=== PATIENT | female | born 1970 | race American Indian/Alaskan Native ===

== ENCOUNTER 2017-11-05 08:32 | Emergency (ER) | payer BC, OTHER ==
[2017-11-05] MEDS ORDERED: MOTRIN PO ONE (09:46)
[2017-11-05] MEDS ORDERED: DELTASONE PO ONE (09:46)
--- NOTE | 2017-11-05 09:46 | Emergency Department Report ---
Minor Respiratory - HPI Chief Complaint: Sore Throat Stated Complaint: SORE THROAT Time Seen by Provider: 11/05/17 09:03 Duration: 1 week Pain Location: Throat (8/10 and burning.) Severity: severe Minor Respiratory: Yes Rhinorrhea (congestion), Yes Sore Throat (burning /worse with swallowing), Yes Able to Tolerate Fluids, Yes Cough (dry cough and postnasal drainage), No Ear Pain, No Sick Contacts, No Hemoptysis, No Chest Pain , No Shortness of Breath, No Fever Other History: Patient reports sore throat that's been ongoing for about a week. She says she's been taking the throat lozenges and spray but it's not helping. Pain is 8 out of 10 burning worse with swallowing. She has postnasal drip, nasal congestion. She says she feels clogged in her facial area. Denies any headache. Denies any nausea or vomiting. Reports cough without any shortness of breath or chest pain. Denies any abdominal pain. Denies any urinary symptoms. Denies any dizziness or blurred vision. ED Review of Systems ROS: Stated complaint: SORE THROAT Other details as noted in HPI Comment: All other systems reviewed and negative Constitutional: denies: chills, fever Eyes: denies: eye pain, eye discharge, vision change ENT: throat pain, congestion. denies: ear pain, dental pain, hearing loss, epistaxis Respiratory: cough. denies: orthopnea, shortness of breath, SOB with exertion, SOB at rest, stridor, wheezing Cardiovascular: denies: chest pain, palpitations, edema, syncope Gastrointestinal: denies: abdominal pain, nausea, vomiting Musculoskeletal: denies: back pain, arthralgia, myalgia Skin: denies: rash Neurological: denies: headache, vertigo ED Past Medical Hx - Past Medical History Previous Medical History?: Yes Hx Hypertension: Yes (since 2010) Hx Heart Attack/AMI: Yes (2010) Hx Congestive Heart Failure: Yes Hx GERD: Yes Hx Headaches / Migraines: Yes (MIGRAINES) Additional medical history: sinusitis - Surgical History Past Surgical History?: No - Family History Family history: hypertension - Social History Smoking Status: Never Smoker Substance Use Type: Alcohol, Non Opiate Pain - Medications Home Medications: Home Medications Medication Instructions Recorded Confirmed Last Taken Type Clopidogrel Bisulfate [Plavix] 75 mg PO DAILY 10/27/14 11/15/14 11/10/14 History Metoprolol [Lopressor TAB] 25 mg PO DAILY 10/27/14 11/18/14 11/17/14 History Simvastatin 40 mg PO DAILY 10/27/14 11/18/14 11/17/14 History Aspirin EC [Aspirin Enteric Coated 81 mg PO QDAY 11/15/14 11/15/14 11/10/14 History TAB] Amoxicillin/K Clav Tab [Augmentin 1 tab PO Q12HR 7 Days #14 tab 11/05/17 Unknown Rx 875 mg] Cetirizine HCl [ZyrTEC] 10 mg PO QAM 14 Days #14 capsule 11/05/17 Unknown Rx Fluticasone [Flonase] 1 spray NS QDAY 14 Days #1 bottle 11/05/17 Unknown Rx Ibuprofen [Motrin] 600 mg PO Q8H PRN #12 tablet 11/05/17 Unknown Rx Minor Respiratory Exam - Exam General: Vital signs noted. No distress. Alert and acting appropriately. This is a 47-year-old female well-nourished well-developed in no acute distress HEENT: Yes Moist Mucous Membranes (uvula is midline and oral airways patent.), Yes Rhinorrhea (erythema and congested), No Pharyngeal Erythema (exudates or peritonsillar abscess noted), No Pharyngeal Exudates, No Conjuctival Injection, No Frontal Tenderness, No Maxillary Tenderness Ear: Neither TM Bulge (Bilateral TM congested), Neither TM Erythema, Neither EAC Pain, Neither EAC Discharge Neck: Yes Supple (full range of motion), No Adenopathy Lungs: Yes Good Air Exchange, No Wheezes, No Ronchi, No Stridor, No Cough, No Labored Respirations, No Retractions, No Use of Accessory Muscles, No Other Abnormal Lung Sounds Heart: Yes Regular (S1-S2), No Murmur Abdomen: Yes Normal Bowel Sounds, No Tenderness (nontender the palpation in all quadrants), No Peritoneal Signs Skin: No Rash, No Edema Neurologic: Alert and oriented 3. Speech is clear and fluid. No deficits. Musculoskeletal: Unremarkable. Extremity:No clubbing, Cyanosis or edema. Positive pulses to all extremities ED Course Vital Signs 11/05/17 08:51 Temperature 98.8 F Pulse Rate 79 Respiratory 18 Rate Blood Pressure 122/81 O2 Sat by Pulse 99 Oximetry - Reevaluation(s) Reevaluation #1: 11/05/17 10:23 I think given Deltasone 60 mg by mouth in emergency room and Motrin 800 mg by mouth ED Medical Decision Making - Medical Decision Making ED course: Reports sore throat 1 week and also reports nasal congestion and runny nose. Reports occasional coughing. Patient found to have sinusitis, upper respiratory tract infection with cough and congestion and pharyngitis. I discussed diagnosis and treatment plan and she voiced understanding. Patient and given Deltasone 60 mg by mouth and Motrin 800 mg by mouth in emergency room which helped her pain. She is able to tolerate oral liquids without any problem. Patient discharged home with her family member in stable condition with prescription for Zyrtec, Augmentin to take with yogurt or probiotic, Flonase and instructed to use saline nasal spray to flush nostrils out and follow up with her primary care physician which she does have one in 2-3 days. Critical care attestation.: If time is entered above; I have spent that time in minutes in the direct care of this critically ill patient, excluding procedure time. ED Disposition Clinical Impression: Upper respiratory infection, acute Sinusitis Qualifiers: Sinusitis location: unspecified location Chronicity: acute Recurrence: not specified as recurrent Qualified Code(s): J01.90 - Acute sinusitis, unspecified Pharyngitis Qualifiers: Pharyngitis/tonsillitis etiology: unspecified etiology Qualified Code(s): J02.9 - Acute pharyngitis, unspecified Disposition: DC-01 TO HOME OR SELFCARE Is pt being admited?: No Does the pt Need Aspirin: No Condition: Stable Instructions: Sinusitis (ED), Acute Cough (ED), Pharyngitis (ED) Additional Instructions: Please increase her fluid intake Flush nostrils with saline nasal spray take antibiotic and other medication as prescribed. As prescribed. He state antibiotic with food or yogurt. F/U with primary care physician as instructed Prescriptions: Amoxicillin/K Clav Tab [Augmentin 875 mg] 1 tab PO Q12HR 7 Days #14 tab Cetirizine HCl [ZyrTEC] 10 mg PO QAM 14 Days #14 capsule Fluticasone [Flonase] 1 spray NS QDAY 14 Days #1 bottle Ibuprofen [Motrin] 600 mg PO Q8H PRN #12 tablet PRN Reason: Pain Referrals: PRIMARY CARE, [Primary Care Provider] - 2-3 Days Forms: Accompanied Note, Work/School Release Form(ED)
[2017-11-05 10:47] VITALS: BP 122/79
== END 2017-11-05 10:45 | disposition home or self-care (01) ==
LOC: ED 08:32
DX: J02.9 Acute pharyngitis, unspecified (principal); J01.90 Acute sinusitis, unspecified; I11.0 Hypertensive heart disease with heart failure; I50.9 Heart failure, unspecified; I25.2 Old myocardial infarction; K21.9 Gastro-esophageal reflux disease without esophagitis; G43.909 Migraine, unspecified, not intractable, without status migrainosus
CPT/HCPCS: 99282; J7512

== ENCOUNTER 2020-10-03 08:17 | Outpatient (CLI) | payer OTHER ==
--- NOTE | 2020-10-03 09:22 | Mammography Report ---
DIGITAL SCREENING MAMMOGRAM WITH CAD, 10/03/2020 CLINICAL INFORMATION / INDICATION: Routine screening mammography. TECHNIQUE: Digital bilateral 2D mammography was obtained in the craniocaudal and mediolateral obliqu e projections. This examination was interpreted with the benefit of Computer-Aided Detection analysis . COMPARISON: 07/09/2018 FINDINGS: Breast Density: The breasts are almost entirely fatty. No dominant mass, suspicious calcifications, or architectural distortion in either breast. No interval change. IMPRESSION: No mammographic evidence of malignancy. Follow up recommendation: Routine yearly BI-RADS Category 1: Negative. A "normal" or negative report should not discourage follow up or biopsy of a clinically significant f inding. A written summary of these findings will be mailed to the patient. The patient will be entered into a mammography reporting system which will generate a reminder letter for the patient's next appointmen t at the appropriate interval. The [employer] recommends yearly mammograms starting at age 40 and continuing as l roger as a woman is in good health. Breast MRI is recommended for women with an approximate 20-25% or greater lifetime risk of breast cancer, including women with a strong family history of breast or ova layne cancer or who have been treated for Hodgkin's disease. Signer Name: Katie Fuller MD Signed: 10/03/2020 9:18 AM Workstation Name: [facility]
== END 2020-10-03 08:18 | disposition home or self-care (01) ==
LOC: SPVWC 08:17
PROVIDERS: ATTEND Internal Medicine
DX: Z12.31 Encounter for screening mammogram for malignant neoplasm of breast (principal)
CPT/HCPCS: 77067

== ENCOUNTER 2021-09-26 18:29 | Emergency (ER) | payer SELFPAY ==
[2021-09-26] MEDS ORDERED: FAMOTIDINE 20 MG/2 ML INJ IV ONE (18:53)
[2021-09-26] MEDS ORDERED: methylPREDNISolone Sod Succinate 125 MG/2 ML INJ IV ONE (18:54)
[2021-09-26] MEDS ORDERED: diphenhydrAMINE 50 MG/ML VIAL IV ONE (18:54)
--- NOTE | 2021-09-26 20:24 | Emergency Department Report ---
HPI - General Chief Complaint: Allergic Reaction PUI?: No Time Seen by Provider: 09/26/21 18:52 - HPI HPI: 50-year-old black female with a past medical history of diabetes and hypertension presents to the emergency room for evaluation of allergic reaction. She states that yesterday she started to have a rash to her face, forearms, and abdomen along with itching in her throat. She states that later that day she started to notice some swelling to her right lower lip. She states that she took some Benadryl which improved the itching but today she started to have increased itching and increased rash and felt what she describes as "funniness" to her chest along with increased itching to her throat. Of note, patient does take lisinopril for hypertension. ED Past Medical Hx - Past Medical History Previous Medical History?: Yes Hx Hypertension: Yes (since 2010) Hx Heart Attack/AMI: Yes (2010) Hx Congestive Heart Failure: Yes Hx GERD: Yes Hx Arthritis: Yes Hx Headaches / Migraines: Yes (MIGRAINES) Additional medical history: sinusitis - Surgical History Past Surgical History?: No - Social History Smoking Status: Never Smoker - Medications Home Medications: Home Medications Medication Instructions Recorded Confirmed Last Taken Type Clopidogrel Bisulfate [Plavix] 75 mg PO DAILY 10/27/14 03/16/20 03/16/20 History Metoprolol [Lopressor TAB] 25 mg PO DAILY 10/27/14 03/16/20 03/16/20 History Aspirin EC [Halfprin EC] 81 mg PO QDAY 11/15/14 03/16/20 03/16/20 History Atorvastatin [Lipitor Tab] 80 mg PO QHS 03/16/20 03/16/20 03/15/20 History Losartan [Cozaar] 25 mg PO DAILY 03/16/20 03/16/20 03/16/20 History EPINEPHrine [Epipen] 0.3 mg IJ ONCE PRN #1 pen 09/26/21 Unknown Rx Famotidine [Pepcid] 20 mg PO BID #10 tablet 09/26/21 Unknown Rx Prednisone [predniSONE 10 mg 10 mg PO .TAPER #1 tab 09/26/21 Unknown Rx (6-Day Pack, 21 Tabs)] ED Review of Systems ROS: Stated complaint: ALLERGIC REACTION Other details as noted in HPI Comment: All other systems reviewed and negative Constitutional: no symptoms reported Eyes: denies: eye pain, eye discharge, vision change ENT: denies: ear pain, throat pain, congestion Respiratory: shortness of breath. denies: SOB with exertion, wheezing Cardiovascular: chest pain. denies: palpitations, dyspnea on exertion, edema, syncope Endocrine: no symptoms reported Gastrointestinal: denies: abdominal pain, nausea, vomiting Musculoskeletal: denies: back pain Skin: rash Neurological: denies: headache, weakness, numbness Psychiatric: denies: anxiety Physical Exam - Physical Exam Vital Signs: Vital Signs 09/26/21 18:35 Temperature 98.4 F Pulse Rate 72 Respiratory 16 Rate Blood Pressure 156/87 [Left] O2 Sat by Pulse 100 Oximetry ED Course Vital Signs 09/26/21 18:35 Temperature 98.4 F Pulse Rate 72 Respiratory 16 Rate Blood Pressure 156/87 [Left] O2 Sat by Pulse 100 Oximetry - Reevaluation(s) Reevaluation #1: Welts, itching, "funny" feeling in chest, and scratchy throat have resolved. Patient states that she feels much better. 09/26/21 20:16 ED Medical Decision Making - Medical Decision Making 50-year-old black female with a past medical history of diabetes and hypertension presents to the emergency room for evaluation of allergic reaction. She states that yesterday she started to have a rash to her face, forearms, and abdomen along with itching in her throat. She states that later that day she started to notice some swelling to her right lower lip. She states that she took some Benadryl which improved the itching but today she started to have increased itching and increased rash and felt what she describes as "funniness" to her chest along with increased itching to her throat. Of note, patient does take lisinopril for hypertension. Welts mostly resolved, feeling in chest resolved, and scratchiness in throat has resolved. Patient states that she feels much better. Plan to send patient home with 6-day prednisone pack along with 5 days of Pepcid 20 mg p.o. and encouragement to follow-up with her primary care doctor or an clinician oncology if any worsening of symptoms or if no further improvement. She was also given EpiPen to use in the evening of another reaction. She verbalized understanding and agreement with plan of care. Critical Care Time: No Critical care attestation.: If time is entered above; I have spent that time in minutes in the direct care of this critically ill patient, excluding procedure time. ED Disposition Clinical Impression: Allergic reaction Disposition: 01 HOME / SELF CARE / HOMELESS Is pt being admited?: No Does the pt Need Aspirin: No Condition: Stable Instructions: Allergies, Adult, [id number], How to Use an Auto-Injector Pen Additional Instructions: Take medications as prescribed. Follow up with primary care provider. Prescriptions: EPINEPHrine [Epipen] 0.3 mg IJ ONCE PRN #1 pen PRN Reason: Allergic Reaction Famotidine [Pepcid] 20 mg PO BID #10 tablet Prednisone [predniSONE 10 mg (6-Day Pack, 21 Tabs)] 10 mg PO .TAPER #1 tab Referrals: ABDI CUBA MD [Referring] - 3-5 Days Time of Disposition: 20:24 ED Allergic Reaction HPI - General Chief complaint: Allergic Reaction Stated complaint: ALLERGIC REACTION Time Seen by Provider: 09/26/21 18:52 Source: patient Mode of arrival: Ambulatory Limitations: No Limitations - History of Present Illness Complaint: allergic reaction -: Sudden, days(s) (2) Exposure: unknown Symptoms: rash, itching, lip swelling, difficulty swallowing. denies: difficulty breathing, hoarseness, dizziness, nausea, vomiting, abdominal pain Treatment Prior to Arrival: yesi Previous Allergy History: none - Related Data Home Medications Medication Instructions Recorded Confirmed Last Taken Clopidogrel Bisulfate [Plavix] 75 mg PO DAILY 10/27/14 03/16/20 03/16/20 Metoprolol [Lopressor TAB] 25 mg PO DAILY 10/27/14 03/16/20 03/16/20 Aspirin EC [Halfprin EC] 81 mg PO QDAY 11/15/14 03/16/20 03/16/20 Atorvastatin [Lipitor Tab] 80 mg PO QHS 03/16/20 03/16/20 03/15/20 Losartan [Cozaar] 25 mg PO DAILY 03/16/20 03/16/20 03/16/20 Previous Rx's Medication Instructions Recorded Last Taken Type EPINEPHrine [Epipen] 0.3 mg IJ ONCE PRN #1 pen 09/26/21 Unknown Rx Famotidine [Pepcid] 20 mg PO BID #10 tablet 09/26/21 Unknown Rx Prednisone [predniSONE 10 mg 10 mg PO .TAPER #1 tab 09/26/21 Unknown Rx (6-Day Pack, 21 Tabs)] Allergies Allergy/AdvReac Type Severity Reaction Status Date / Time No Known Allergies Allergy Verified 03/16/20 11:28 ED ALLG RXN EXAM - General General appearance: in no apparent distress Limitations: No Limitations Head exam: Positive: atraumatic, normocephalic Eye exam: normal appearance ENT Exam: Positive: Lip Edema. Negative: Drooling, Muffled Voice, Tongue Edema, Uvular Edema Neck exam: Positive: normal inspection, full ROM. Negative: tenderness Respiratory exam: Positive: normal lung sounds bilaterally. Negative: respiratory distress, wheezes, chest wall tenderness, accessory muscle use Cardiovascular Exam: Positive: regular rate GI/Abdominal exam: Positive: soft, normal bowel sounds. Negative: distended, tenderness, guarding, rebound Extremities exam: Positive: normal inspection, full ROM Neurological exam: Positive: oriented X3 Psychiatric exam: Positive: normal affect, normal mood Skin exam: Positive: warm, dry, intact, rash, urticaria
[2021-09-26 22:21] VITALS: BP 132/87
== END 2021-09-26 22:20 | disposition home or self-care (01) ==
LOC: ED 18:29
DX: T78.40XA Allergy, unspecified, initial encounter (principal); X58.XXXA Exposure to other specified factors, initial encounter; I10 Essential (primary) hypertension
CPT/HCPCS: 96374; 96375; 99282; J1200; J2930; J3490

== ENCOUNTER 2022-04-19 15:56 | Emergency (ER) | payer OTHER ==
--- NOTE | 2022-04-19 21:01 | Emergency Department Report ---
ED General Adult HPI - General Chief complaint: Back Pain/Injury Stated complaint: SHORTNESS OF BREATH Time Seen by Provider: 04/19/22 20:29 Source: patient Mode of arrival: Ambulatory Limitations: No Limitations - History of Present Illness Initial comments: This is a 50-year-old black female with a past medical history of diabetes, MD, arthralgia, and hypertension presents to the emergency room for evaluation shortness of breath and right rib and flank pain x2 days. Symptoms are exacerbated by movement and deep inspiration. Symptoms are relieved by nothing tried. Patient denies headache no dizziness no diaphoresis has been no nausea vomiting no fever or chills. Patient denies productive cough. There is no dysuria frequency or urgency. Patient denies other symptoms. Patient advises adherence to all other medications as prescribed. Patient denies suspicious travel or history of PE. Severity scale (0 -10): 6 - Related Data Home Medications Medication Instructions Recorded Confirmed Last Taken Clopidogrel Bisulfate [Plavix] 75 mg PO DAILY 10/27/14 03/16/20 03/16/20 Metoprolol [Lopressor TAB] 25 mg PO DAILY 10/27/14 03/16/20 03/16/20 Aspirin EC [Halfprin EC] 81 mg PO QDAY 11/15/14 03/16/20 03/16/20 Atorvastatin [Lipitor Tab] 80 mg PO QHS 03/16/20 03/16/20 03/15/20 Losartan [Cozaar] 25 mg PO DAILY 03/16/20 03/16/20 03/16/20 Previous Rx's Medication Instructions Recorded Last Taken Type EPINEPHrine [Epipen] 0.3 mg IJ ONCE PRN #1 pen 09/26/21 Unknown Rx Famotidine [Pepcid] 20 mg PO BID #10 tablet 09/26/21 Unknown Rx Prednisone [predniSONE 10 mg 10 mg PO .TAPER #1 tab 09/26/21 Unknown Rx (6-Day Pack, 21 Tabs)] Albuterol Mdi (or & Nicu Only) 2 puff IH QID PRN #8.5 gram 04/19/22 Unknown Rx [ProAir HFA Inhaler] Ibuprofen [Motrin 800 MG tab] 800 mg PO Q8HR PRN #30 tablet 04/19/22 Unknown Rx Allergies Allergy/AdvReac Type Severity Reaction Status Date / Time No Known Allergies Allergy Verified 04/19/22 17:06 ED Review of Systems ROS: Stated complaint: SHORTNESS OF BREATH Other details as noted in HPI Constitutional: denies: chills, fever Eyes: denies: eye pain, eye discharge, vision change ENT: denies: ear pain, throat pain Respiratory: shortness of breath. denies: cough, orthopnea, stridor, wheezing Cardiovascular: chest pain (Right lateral chest wall pain with deep inspiration). denies: palpitations Endocrine: no symptoms reported Gastrointestinal: denies: abdominal pain, nausea, vomiting, diarrhea Genitourinary: denies: urgency, dysuria, discharge Musculoskeletal: denies: back pain, joint swelling, arthralgia Skin: denies: rash, lesions Neurological: denies: headache, weakness, paresthesias, vertigo Psychiatric: as per HPI Hematological/Lymphatic: denies: easy bleeding, easy bruising ED Past Medical Hx - Past Medical History Hx Hypertension: Yes (since 2010) Hx Heart Attack/AMI: Yes (2010) Hx Congestive Heart Failure: Yes Hx GERD: Yes Hx Arthritis: Yes Hx Headaches / Migraines: Yes (MIGRAINES) Additional medical history: sinusitis - Social History Smoking Status: Never Smoker - Medications Home Medications: Home Medications Medication Instructions Recorded Confirmed Last Taken Type Clopidogrel Bisulfate [Plavix] 75 mg PO DAILY 10/27/14 03/16/20 03/16/20 History Metoprolol [Lopressor TAB] 25 mg PO DAILY 10/27/14 03/16/20 03/16/20 History Aspirin EC [Halfprin EC] 81 mg PO QDAY 11/15/14 03/16/20 03/16/20 History Atorvastatin [Lipitor Tab] 80 mg PO QHS 03/16/20 03/16/20 03/15/20 History Losartan [Cozaar] 25 mg PO DAILY 03/16/20 03/16/20 03/16/20 History EPINEPHrine [Epipen] 0.3 mg IJ ONCE PRN #1 pen 09/26/21 Unknown Rx Famotidine [Pepcid] 20 mg PO BID #10 tablet 09/26/21 Unknown Rx Prednisone [predniSONE 10 mg 10 mg PO .TAPER #1 tab 09/26/21 Unknown Rx (6-Day Pack, 21 Tabs)] Albuterol Mdi (or & Nicu Only) 2 puff IH QID PRN #8.5 gram 04/19/22 Unknown Rx [ProAir HFA Inhaler] Ibuprofen [Motrin 800 MG tab] 800 mg PO Q8HR PRN #30 tablet 04/19/22 Unknown Rx ED Physical Exam - General Limitations: No Limitations General appearance: alert, in no apparent distress - Head Head exam: Present: atraumatic, normocephalic - Eye Eye exam: Present: normal appearance, EOMI Pupils: Present: normal accommodation - ENT ENT exam: Present: normal orophraynx, mucous membranes moist - Neck Neck exam: Present: normal inspection, full ROM. Absent: tenderness, lymphadenopathy - Respiratory Respiratory exam: Present: normal lung sounds bilaterally, chest wall tenderness (Right lateral no correct crepitus no ecchymosis no step-off lung sounds are clear throughout). Absent: respiratory distress, wheezes, rales, rhonchi, stridor, decreased breath sounds - Cardiovascular Cardiovascular Exam: Present: regular rate, normal rhythm, normal heart sounds. Absent: systolic murmur, diastolic murmur, rubs, gallop - GI/Abdominal GI/Abdominal exam: Present: soft, normal bowel sounds. Absent: distended, tenderness - Rectal Rectal exam: Present: deferred - Extremities Exam Extremities exam: Present: normal inspection, full ROM, normal capillary refill. Absent: pedal edema - Back Exam Back exam: Present: normal inspection, full ROM. Absent: CVA tenderness (R), CVA tenderness (L) - Neurological Exam Neurological exam: Present: alert, oriented X3, CN II-XII intact, normal gait - Expanded Neurological Exam Expanded Patient oriented to: Present: person, place, time Speech: Present: fluid speech Motor strength exam: RUE: 5, LUE: 5, RLE: 5, LLE: 5 Best Eye Response ([place]): (4) open spontaneously Best Motor Response ([place]): (6) obeys commands Best Verbal Response ([place]): (5) oriented Zena Total: 15 - Psychiatric Psychiatric exam: Present: normal affect, normal mood - Skin Skin exam: Present: warm, dry, intact, normal color. Absent: rash ED Course Vital Signs 04/19/22 17:05 Temperature 99.2 F Pulse Rate 92 H Respiratory 20 Rate Blood Pressure 154/95 [Left] O2 Sat by Pulse 99 Oximetry ED Medical Decision Making - Lab Data Result diagrams: 04/19/22 21:08 04/19/22 21:08 Labs 04/19/22 04/19/22 04/19/22 21:08 21:08 21:08 WBC 5.7 RBC 4.45 Hgb 12.1 Hct 37.0 MCV 83 MCH 27 L MCHC 33 RDW 15.0 Plt Count 319 Lymph % (Auto) 23.3 [place] % (Auto) 10.4 H Eos % (Auto) 0.8 Baso % (Auto) 0.8 Lymph # (Auto) 1.3 [place] # (Auto) 0.6 Eos # (Auto) 0.0 Baso # (Auto) 0.0 Seg Neutrophils % 64.7 Seg Neutrophils # 3.7 PT 13.5 INR 0.93 APTT 26.7 Sodium 139 Potassium 4.2 Chloride 103.3 Carbon Dioxide 21 L Anion Gap 19 BUN 10 Creatinine 0.8 Estimated GFR > 60 BUN/Creatinine Ratio 13 Glucose 109 H Calcium 8.7 Total Bilirubin 0.80 AST 16 ALT 18 Alkaline Phosphatase 84 Troponin T < 0.010 Total Protein 7.0 Albumin 4.6 Albumin/Globulin Ratio 1.9 - EKG Data EKG shows normal: sinus rhythm, axis, intervals, QRS complexes, ST-T waves Rate: normal - EKG Data Interpretation: normal EKG (Normal sinus rhythm no ST elevated MD interpreted by ED attending.) - Radiology Data Radiology results: report reviewed, image reviewed CHEST 2 VIEWS INDICATION / CLINICAL INFORMATION: SOB. COMPARISON: None available. FINDINGS: SUPPORT DEVICES: None. HEART / MEDIASTINUM: No significant abnormality. LUNGS / PLEURA: No significant pulmonary or pleural abnormality. No pne umothorax. ADDITIONAL FINDINGS: No significant additional findings. IMPRESSION: 1. No acute findings. Signer Name: Mu Hirsch MD Signed: 04/19/2022 9:16 PM Workstation Name: [id number] Transcribed By: SANJUANA Dictated By: Mu Hirsch MD Electronically Authenticated By: Mu Hirsch MD Signed Date/Time: 04/19/222115 DD/ 14 TD/TT: - Medical Decision Making Patient advises symptoms are resolved. Heart score is 1, FAWN score 0, patient alert oriented x3 ambulatory with steady gait without increased shortness of b reath. chest x-ray normal infiltrates no opacities, EKG normal sinus rhythm no ST elevated MD, interpreted by ED attending. Labs are nonactionable. Plan DC to home, to hydrate as directed. Follow-up with your doctor in 1 to 2 days. Return to emergency department should symptoms worsen. Patient verbalized agreement and understanding of discharge plan. Critical care attestation.: If time is entered above; I have spent that time in minutes in the direct care of this critically ill patient, excluding procedure time. ED Disposition Clinical Impression: Shortness of breath Disposition: 01 HOME / SELF CARE / HOMELESS Is pt being admited?: No Does the pt Need Aspirin: No Condition: Stable Instructions: Shortness of Breath, Adult, [id number] Additional Instructions: Take medications as prescribed, follow-up with your doctor in 2 to 3 days. Return to emergency department should symptoms worsen. Prescriptions: Ibuprofen [Motrin 800 MG tab] 800 mg PO Q8HR PRN #30 tablet PRN Reason: pain Albuterol Mdi (or & Nicu Only) [ProAir HFA Inhaler] 2 puff IH QID PRN #8.5 gram PRN Reason: Shortness Of Breath Referrals: JOSSY MENENDEZ MD [Staff Physician] - 3-5 Days Forms: Work/School Release Form(ED) Time of Disposition: 01:06
--- NOTE | 2022-04-19 21:20 | XRay Report ---
CHEST 2 VIEWS INDICATION / CLINICAL INFORMATION: SOB. COMPARISON: None available. FINDINGS: SUPPORT DEVICES: None. HEART / MEDIASTINUM: No significant abnormality. LUNGS / PLEURA: No significant pulmonary or pleural abnormality. No pneumothorax. ADDITIONAL FINDINGS: No significant additional findings. IMPRESSION: 1. No acute findings. Signer Name: Mu Hirsch MD Signed: 04/19/2022 9:16 PM Workstation Name: [id number]
[2022-04-19 21:31] LABS: Basophils % (Auto) 0.8 % (0.0-1.8); Eosinophils % (Auto) 0.8 % (0.0-4.3); Hemoglobin 12.1 gm/dl (10.1-14.3); Lymphocytes # (Auto) 1.3 K/mm3 (1.2-5.4); Lymphocytes % (Auto) 23.3 % (13.4-35.0); Mean Corpuscular HGB Conc 33 % (30-34); Mean Corpuscular Volume 83 fl (79-97); Monocytes # (Auto) 0.6 K/mm3 (0.0-0.8); Monocytes % (Auto) 10.4 % (0.0-7.3); Platelet Count 319 K/mm3 (140-440); Red Blood Count 4.45 M/mm3 (3.65-5.03)
[2022-04-19 21:41] LABS: INR 0.93 (0.87-1.13)
[2022-04-19 21:42] LABS: Partial Thromboplastin Time 26.7 Sec. (24.2-36.6)
[2022-04-19 23:13] LABS: Alanine Aminotransferase 18 units/L (7-56); Albumin 4.6 g/dL (3.9-5); BUN/Creatinine Ratio 13; Blood Urea Nitrogen 10 mg/dL (7-17); Calcium 8.7 mg/dL (8.4-10.2); Hemolysis Index 27
[2022-04-20 01:40] VITALS: BP 104/62
--- NOTE | 2022-04-20 13:38 | Electrocardiograph Report ---
[facility] Test Date: 2022-04-19 Test Time: 20:39:22 Pat Name: [facility] Department: Room: Gender: F Parts Chaser: GUSTAVO : 1970 Requested By: EVELYNE PRADO Order Number: [id number] Reading MD: Melanie Lakhani Measurements Intervals [place] Rate: 84 P: 53 NE: 156 QRS: 24 QRSD: 83 T: 36 QT: 317 QTc: 376 Interpretive Statements Sinus rhythm Consider old anterior infarct No previous ECG available for comparison Electronically Signed On 04-20-2022 13:38:16 EDT by Melanie Lakhani
== END 2022-04-20 01:40 | disposition home or self-care (01) ==
LOC: ED 15:56
DX: R06.02 Shortness of breath (principal); I10 Essential (primary) hypertension
CPT/HCPCS: 36415; 71046; 80053; 84484; 85025; 85610; 85730; 93005; 99283; 99284